=== PATIENT | female | born 1940 | race African-American/Black ===

== ENCOUNTER 2018-09-20 13:56 | Emergency (ER) | payer MEDICARE, MEDICAID ==
[~2018-09-20] VITALS: Ht 152.4 cm; Wt 89.0 kg
[~2018-09-20 13:56] MED LIST: AMLO10TA80 PO; ASPI-518 PO; BENA40TA9 PO; HYDR25TA PO; NASOI INH; OMEP20TA2 PO
[2018-09-20] MEDS ORDERED: ACETAMINOPHEN 325MG TABLET PO ONE (14:30)
[2018-09-20 15:47] VITALS: BP 135/72
== END 2018-09-20 15:45 | disposition home or self-care (01) ==
LOC: ER 15:40
DX: S00.03XA Contusion of scalp, initial encounter (principal); I10 Essential (primary) hypertension; W10.8XXA Fall (on) (from) other stairs and steps, initial encounter; Y93.89 Activity, other specified; Y92.89 Other specified places as the place of occurrence of the external cause; Z91.011 Allergy to milk products; Z79.82 Long term (current) use of aspirin
CPT/HCPCS: 99284